=== PATIENT | male | born 1940 | race Hispanic/Latino ===

== ENCOUNTER → 2020-02-18 | Outpatient (CLI) | payer OTHER | END | disposition home or self-care (01) | LOC: OIH 14:26 | PROVIDERS: ATTEND Internal Medicine | DX: M17.0 Bilateral primary osteoarthritis of knee (principal) ==

== ENCOUNTER → 2020-02-25 | Outpatient (CLI) | payer OTHER | END | disposition home or self-care (01) | LOC: OIH 15:44 | PROVIDERS: ATTEND Internal Medicine | DX: R06.02 Shortness of breath (principal); I70.0 Atherosclerosis of aorta | CPT/HCPCS: 71046 ==

== ENCOUNTER 2020-02-27 13:57 | Emergency (ER) | payer OTHER ==
[2020-02-27 14:47] LABS: BASOPHILS % (AUTO) 0.1 % (0.0-5.0); HEMATOCRIT 43.3 % (42-54); MEAN CORPUSCULAR HEMOGLOBIN 29.2 pg (27.0-33.0); MEAN CORPUSCULAR HGB CONC 34.4 g/dL (32.0-36.0); MEAN CORPUSCULAR VOLUME 84.9 fL (79-99); MONOCYTES % (AUTO) 4.6 % (3.0-13.0); NEUTROPHILS % (AUTO) 90.4 % (40.0-77.0); PLATELET COUNT (AUTO) 295 K/uL (130-400); RED CELL DISTRIBUTION WIDTH 12.7 % (11.0-15.5); WHITE BLOOD COUNT (AUTO) 16.5 K/uL (4.8-10.8)
[2020-02-27 15:06] LABS: INR 0.99 (0.85-1.15); PARTIAL THROMBOPLASTIN TIME 28.9 SEC (26.3-35.5); PROTHROMBIN TIME 10.7 SEC (9.6-11.6)
[2020-02-27 15:14] LABS: CARBON DIOXIDE 26 mmol/L (21-32); CHLORIDE 98 mmol/L (101-111); CREATININE 1.3 mg/dL (0.5-1.5); GLOMERULAR FILTR. RATE CALC 56 mL/min (>60); GLUCOSE,RANDOM 172 mg/dL (70-105); POTASSIUM 3.8 mmol/L (3.5-5.1); SODIUM SERUM 136 mmol/L (136-145); UREA NITROGEN, BLOOD 23 mg/dL (7-18)
[2020-02-27 15:28] LABS: ALANINE AMINOTRANSFERASE 65 U/L (12-78); ALBUMIN 2.8 g/dL (3.5-5.0); ASPARTATE AMINOTRANSFERASE 55 U/L (10-37); BILIRUBIN,TOTAL 0.6 mg/dL (0.2-1.0); CREATINE KINASE, TOTAL 225 U/L (21-232); MYOGLOBIN 217 ng/mL (10-92); TOTAL PROTEIN, SERUM 7.7 g/dL (6.0-8.3); TROPONIN I < 0.04 ng/mL (0.00-0.06)
[2020-02-27 16:26] LABS: ABG BASE EXCESS 3.1 mmol/L (-2.0-3.0); ABG HCO3 26.3 mmol/L (21.0-28.0); ABG OXYGEN SATURATION 92.5 % (95.0-99.0); ABG PCO2 36 mmHg (35-48)
[2020-02-27] MEDS ORDERED: ACETAMINOPHEN 325 MG TAB ONE (17:12)
== END 2020-02-27 17:25 | disposition home or self-care (01) ==
LOC: EDH 13:57
DX: J12.89 Other viral pneumonia (principal); I10 Essential (primary) hypertension; E78.00 Pure hypercholesterolemia, unspecified; Z20.828 Contact with and (suspected) exposure to other viral communicable diseases
CPT/HCPCS: 36415 ×2; 36600; 71045; 80053; 82550; 82803; 83605; 83874; 84145; 84484; 85025; 85610; 85730; 86900; 86901; 87040 ×2; 87426; 87804 ×2; 93005; 99285; U0003

== ENCOUNTER 2020-03-03 09:17 | Inpatient (IN) | payer OTHER ==
[~2020-03-03] VITALS: Ht 167.6 cm; Wt 82.4 kg
[2020-03-03 09:37] LABS: ABG BASE EXCESS -1.1 mmol/L (-2.0-3.0); ABG HCO3 21.5 mmol/L (21.0-28.0); ABG OXYGEN SATURATION 95.4 % (95.0-99.0); ABG PCO2 31 mmHg (35-48)
[2020-03-03 09:55] LABS: BASOPHILS % (AUTO) 0.2 % (0.0-5.0); EOSINOPHILS % (AUTO) 0.2 % (0.0-8.0); HEMATOCRIT 43.5 % (42-54); MEAN CORPUSCULAR HEMOGLOBIN 28.9 pg (27.0-33.0); MEAN CORPUSCULAR HGB CONC 33.8 g/dL (32.0-36.0); MEAN CORPUSCULAR VOLUME 85.6 fL (79-99); MONOCYTES % (AUTO) 4.4 % (3.0-13.0); PLATELET COUNT (AUTO) 361 K/uL (130-400); RED BLOOD CELL COUNT(AUTO) 5.08 MIL/uL (4.50-6.20); RED CELL DISTRIBUTION WIDTH 12.7 % (11.0-15.5)
[2020-03-03 10:02] LABS: CARBON DIOXIDE 22 mmol/L (21-32); CHLORIDE 101 mmol/L (101-111); CREATININE 1.4 mg/dL (0.5-1.5); GLOMERULAR FILTR. RATE CALC 52 mL/min (>60); GLUCOSE,RANDOM 202 mg/dL (70-105); POTASSIUM 4.3 mmol/L (3.5-5.1); SODIUM SERUM 137 mmol/L (136-145); UREA NITROGEN, BLOOD 34 mg/dL (7-18)
[2020-03-03 10:05] LABS: INR 1.12 (0.85-1.15); PARTIAL THROMBOPLASTIN TIME 23.6 SEC (26.3-35.5)
[2020-03-03 10:13] LABS: ALANINE AMINOTRANSFERASE 45 U/L (12-78); ALBUMIN 2.4 g/dL (3.5-5.0); ASPARTATE AMINOTRANSFERASE 34 U/L (10-37); BILIRUBIN,TOTAL 0.8 mg/dL (0.2-1.0); CREATINE KINASE, TOTAL 95 U/L (21-232); MYOGLOBIN 176 ng/mL (10-92); TOTAL PROTEIN, SERUM 7.1 g/dL (6.0-8.3); TROPONIN I < 0.04 ng/mL (0.00-0.06)
[2020-03-03] MEDS ORDERED: DEXAMETHASONE SOD PHOSPHATE 10MG/ML 1ML VIAL ONE (11:39)
[2020-03-03] MEDS ORDERED: CEFTRIAXONE SODIUM 1 GM ONE (11:40)
[2020-03-03] MEDS ORDERED: AZITHROMYCIN 500MG+NS 250ML 250 ML IV ONE (11:40)
[2020-03-04] MEDS ORDERED: LACTATED RINGERS 1000ML 1,000 ML IV SCH (01:45)
[2020-03-04] MEDS: CEFTRIAXONE SODIUM 1 GM IVP SCH ×2 (01:45→13:45)
[2020-03-04] MEDS ORDERED: ERGOCALCIFEROL (VITAMIN D2) 50,000 UNIT CAPSULE PO ONE (01:45)
[2020-03-04] MEDS: AZITHROMYCIN 500MG+NS 250ML 250 ML IV SCH (01:45)
[2020-03-04] MEDS ORDERED: HYDRALAZINE HCL 20 MG/ML VIAL ONE ×2 (01:54→10:21)
[2020-03-04] MEDS ORDERED: HYDRALAZINE HCL 20 MG/ML VIAL IV PRN (02:00)
[2020-03-04] MEDS ORDERED: PHARMACY COMMUNICATION MISC SCH (02:15)
[2020-03-04] MEDS: PHARMACY COMMUNICATION***REMDESIVIR ORDER MISC SCH (02:15)
[2020-03-04 04:15] LABS: HEMOGLOBIN A1C 7.5 % (4.0-6.0)
[2020-03-04] MEDS ORDERED: LABETALOL 20 MG/4 ML DISP.SYRIN IV ONE (05:56)
[2020-03-04] MEDS: ASCORBIC ACID 500 MG TAB PO SCH (09:00)
[2020-03-04] MEDS ORDERED: ENOXAPARIN SODIUM 80 MG/0.8 ML SQ SCH (09:00)
[2020-03-04] MEDS: DEXAMETHASONE SOD PHOSPHATE 4 MG/ML 1ML VIAL IVP SCH (09:00)
[2020-03-04] MEDS: ACETYLCYSTEINE 600 MG CAPSULE PO SCH ×2 (09:00→21:00)
[2020-03-04] MEDS: ZINC SULFATE 220 CAPSULE PO SCH (09:00)
[2020-03-04] MEDS ORDERED: DEXAMETHASONE SOD PHOSPHATE 4 MG/ML 1ML VIAL ONE (10:18)
[2020-03-04] MEDS ORDERED: ENOXAPARIN SODIUM 80 MG/0.8 ML SQ ONE (10:18)
[2020-03-04] MEDS ORDERED: ASCORBIC ACID 500 MG TAB ONE (10:18)
[2020-03-04] MEDS ORDERED: ACETYLCYSTEINE 600 MG CAPSULE ONE (10:18)
[2020-03-04] MEDS ORDERED: ZINC SULFATE 220 CAPSULE ONE (10:19)
[2020-03-04] MEDS ORDERED: SODIUM CHLORIDE 0.9% 50 ML IV ONE (10:21)
[2020-03-04] MEDS ORDERED: AZITHROMYCIN 500MG+NS 250ML 250 ML IV ONE (10:21)
[2020-03-04] MEDS ORDERED: CEFTRIAXONE SODIUM 1 GM ONE (10:21)
[2020-03-04] MEDS ORDERED: ALBUTEROL INHALER 90MCG/INH IH ONE (10:55)
[2020-03-04] MEDS: FUROSEMIDE 10 MG/ML 2ML VIAL IV SCH ×2 (15:00→23:21)
[2020-03-04 15:40] LABS: MAGNESIUM 2.4 mg/dL (1.80-2.40); POTASSIUM 4.4 mmol/L (3.5-5.1)
[2020-03-04] MEDS ORDERED: FUROSEMIDE 10 MG/ML 2ML VIAL ONE (15:43)
[2020-03-04 18:08] LABS: APPEARANCE,URINE Clear (CLEAR); BILIRUBIN,URINE Negative (NEGATIVE); COLOR,URINE Yellow (YELLOW); GLUCOSE, URINE (UA) Negative (NEGATIVE); KETONES,URINE Negative (NEGATIVE); LEUKOCYTE ESTERASE ,URINE Negative (NEGATIVE); NITRATE,URINE Negative (NEGATIVE); OCCULT BLOOD,URINE Negative (NEGATIVE); PROTEIN,URINE Negative (NEGATIVE); UROBILINOGEN,URINE 0.2 mg/dL (0.2-1.0)
[2020-03-04 20:15] VITALS: BP 188/97
[2020-03-04] MEDS ORDERED: ALBUTEROL INHALER 90MCG/INH IH PRN (20:15)
--- NOTE | 2020-03-04 20:15 | NUR ---
Received pt. from ER in stable condition. C/o feeling cold. Pt. has SOB with exertion Sats 99 on 100% NRBM. External cath with 200 ml yellow clear urine Minor skin scratch in Left buttock, no other skin wounds.
[2020-03-04 21:00] VITALS: BP 157/84
[2020-03-04] MEDS: ENOXAPARIN SODIUM 80 MG/0.8 ML SQ SCH (21:00)
[2020-03-04 22:00] VITALS: BP 163/85
[2020-03-04] MEDS: DIPHENHYDRAMINE HCL 25 MG CAPSULE PO SCH (22:15)
[2020-03-04] MEDS ORDERED: DIPHENHYDRAMINE HCL 25 MG CAPSULE ONE (22:16)
[2020-03-04] MEDS ORDERED: ACETAMINOPHEN 325 MG TAB ONE (22:17)
[2020-03-04] MEDS: ACETAMINOPHEN 325 MG TAB PO PRN ×2 (22:21→23:38)
[2020-03-04 23:00] VITALS: BP 167/89
[2020-03-04] MEDS: LABETALOL 20 MG/4 ML DISP.SYRIN IV PRN (23:23)
[2020-03-05] VITALS (12 sets, daily range): BP systolic 133–180; BP diastolic 70–108
[2020-03-05] MEDS: AZITHROMYCIN 500MG+NS 250ML 250 ML IV SCH (01:16)
[2020-03-05] MEDS: CEFTRIAXONE SODIUM 1 GM IVP SCH ×2 (01:19→13:55)
[2020-03-05] MEDS: PHARMACY COMMUNICATION***REMDESIVIR ORDER MISC SCH ×2 (02:15→19:37)
[2020-03-05] MEDS ORDERED: NON-FORMULARY MEDICATION 1 EACH MISC SCH (02:15)
[2020-03-05] MEDS ORDERED: DICL75TA5 PO (03:11)
[2020-03-05] MEDS ORDERED: LISI40TA4 PO (03:11)
[2020-03-05] MEDS ORDERED: AMLO-257 PO (03:11)
[2020-03-05] MEDS ORDERED: ATOR40TA71 PO (03:11)
[2020-03-05 03:57] LABS: BASOPHILS % (AUTO) 0.1 % (0.0-5.0); EOSINOPHILS % (AUTO) 0.5 % (0.0-8.0); HEMATOCRIT 40.9 % (42-54); LYMPHOCYTES % (AUTO) 4.8 % (21.0-51.0); MEAN CORPUSCULAR HEMOGLOBIN 29.1 pg (27.0-33.0); MEAN CORPUSCULAR HGB CONC 33.7 g/dL (32.0-36.0); MEAN CORPUSCULAR VOLUME 86.1 fL (79-99); MONOCYTES % (AUTO) 3.4 % (3.0-13.0); NEUTROPHILS % (AUTO) 90.2 % (40.0-77.0); PLATELET COUNT (AUTO) 379 K/uL (130-400); RED BLOOD CELL COUNT(AUTO) 4.75 MIL/uL (4.50-6.20); RED CELL DISTRIBUTION WIDTH 12.9 % (11.0-15.5); WHITE BLOOD COUNT (AUTO) 10.6 K/uL (4.8-10.8)
[2020-03-05 04:13] LABS: ALBUMIN 2.1 g/dL (3.5-5.0); BILIRUBIN,TOTAL 0.5 mg/dL (0.2-1.0); CREATININE 1.1 mg/dL (0.5-1.5); CRP QUANTITATIVE 52.3 mg/L (0.00-9.0); TOTAL PROTEIN, SERUM 6.4 g/dL (6.0-8.3)
[2020-03-05 06:46] LABS: ABG BASE EXCESS 0.4 mmol/L (-2.0-3.0); ABG HCO3 24.3 mmol/L (21.0-28.0); ABG OXYGEN SATURATION 97.3 % (95.0-99.0); ABG PCO2 37 mmHg (35-48)
[2020-03-05] MEDS: DEXAMETHASONE SOD PHOSPHATE 4 MG/ML 1ML VIAL IVP SCH ×4 (08:20→20:16)
[2020-03-05] MEDS: ZINC SULFATE 220 CAPSULE PO SCH (08:20)
[2020-03-05] MEDS: ASCORBIC ACID 500 MG TAB PO SCH (08:20)
[2020-03-05] MEDS: ACETYLCYSTEINE 600 MG CAPSULE PO SCH ×2 (08:20→20:16)
[2020-03-05] MEDS: FUROSEMIDE 10 MG/ML 2ML VIAL IV SCH ×2 (08:22→15:28)
[2020-03-05] MEDS: ENOXAPARIN SODIUM 80 MG/0.8 ML SQ SCH ×2 (08:24→20:17)
[2020-03-05] MEDS ORDERED: COMPOUND IV REFRIGERATED 1 EACH IVSOLN MISC PRN (14:00)
[2020-03-05] MEDS ORDERED: REMDESIVIR (EUA) 520 200 MG in SODIUM CHLORIDE 0.9% 250 ML IV ONE (14:00)
[2020-03-05] MEDS: LABETALOL 20 MG/4 ML DISP.SYRIN IV PRN (16:27)
--- NOTE | 2020-03-05 16:41 | NUR ---
DC PLAN VISITED WITH PATIENT. PATIENT LIVES WITH SPOUSE. INDEPENDENT ABLE TO PERFORM ADL'S. PATIENT HAS NO SERVICES OR DME'S. FEELS SAFE TO RETURN HOME. Addendum: 03/05/20 at 1644 by KASSIE GRACIA RN CM Amended: Links added.
[2020-03-05] MEDS: PHARMACY COMMUNICATION MISC SCH (19:37)
[2020-03-05] MEDS: ATORVASTATIN CALCIUM 40 MG TABLET PO SCH (20:16)
[2020-03-05] MEDS: DIPHENHYDRAMINE HCL 25 MG CAPSULE PO SCH (20:17)
[2020-03-06] VITALS (8 sets, daily range): BP systolic 111–181; BP diastolic 48–89
[2020-03-06] MEDS: CEFTRIAXONE SODIUM 1 GM IVP SCH ×2 (00:13→13:31)
[2020-03-06] MEDS: AZITHROMYCIN 500MG+NS 250ML 250 ML IV SCH (00:13)
[2020-03-06] MEDS: FUROSEMIDE 10 MG/ML 2ML VIAL IV SCH ×4 (00:13→20:06)
[2020-03-06 05:05] LABS: BASOPHILS % (AUTO) 0.1 % (0.0-5.0); HEMATOCRIT 44.7 % (42-54); LYMPHOCYTES % (AUTO) 5.9 % (21.0-51.0); MEAN CORPUSCULAR HEMOGLOBIN 28.9 pg (27.0-33.0); MEAN CORPUSCULAR HGB CONC 33.3 g/dL (32.0-36.0); MEAN CORPUSCULAR VOLUME 86.8 fL (79-99); MONOCYTES % (AUTO) 4.6 % (3.0-13.0); PLATELET COUNT (AUTO) 393 K/uL (130-400); RED BLOOD CELL COUNT(AUTO) 5.15 MIL/uL (4.50-6.20); WHITE BLOOD COUNT (AUTO) 6.9 K/uL (4.8-10.8)
[2020-03-06 05:22] LABS: ALBUMIN 2.3 g/dL (3.5-5.0); BILIRUBIN,TOTAL 0.4 mg/dL (0.2-1.0); CREATININE 1.3 mg/dL (0.5-1.5); CRP QUANTITATIVE 36.6 mg/L (0.00-9.0); POTASSIUM 4.2 mmol/L (3.5-5.1); TOTAL PROTEIN, SERUM 6.9 g/dL (6.0-8.3)
[2020-03-06] MEDS: LISINOPRIL 40 MG TABLET PO SCH (09:07)
[2020-03-06] MEDS: ZINC SULFATE 220 CAPSULE PO SCH (09:08)
[2020-03-06] MEDS: AMLODIPINE BESYLATE 5 MG TAB PO SCH (09:08)
[2020-03-06] MEDS: ACETYLCYSTEINE 600 MG CAPSULE PO SCH ×2 (09:08→20:06)
[2020-03-06] MEDS: ASCORBIC ACID 500 MG TAB PO SCH (09:08)
[2020-03-06] MEDS: ENOXAPARIN SODIUM 80 MG/0.8 ML SQ SCH ×2 (09:13→20:06)
[2020-03-06] MEDS: DEXAMETHASONE SOD PHOSPHATE 4 MG/ML 1ML VIAL IVP SCH ×2 (09:14→20:05)
--- NOTE | 2020-03-06 13:30 | NUR ---
[facility]IS[facility] FOR [facility] TODAY. SPKE TO VIVIANA AT [facility] RE PLAN OFR NEXT WEEK
[2020-03-06] MEDS: REMDESIVIR (EUA) 520 100 MG in SODIUM CHLORIDE 0.9% 250 ML IV SCH (14:22)
[2020-03-06] MEDS: DIPHENHYDRAMINE HCL 25 MG CAPSULE PO SCH (19:34)
[2020-03-06] MEDS: METOPROLOL TARTRATE 25 MG TAB PO SCH (20:06)
[2020-03-06] MEDS: ATORVASTATIN CALCIUM 40 MG TABLET PO SCH (20:06)
[2020-03-07] MEDS: PHARMACY COMMUNICATION***REMDESIVIR ORDER MISC SCH (02:15)
[2020-03-07] MEDS: PHARMACY COMMUNICATION MISC SCH (02:59)
[2020-03-07] MEDS: CEFTRIAXONE SODIUM 1 GM IVP SCH ×2 (03:38→14:20)
[2020-03-07] MEDS: AZITHROMYCIN 500MG+NS 250ML 250 ML IV SCH (03:38)
[2020-03-07 03:41] VITALS: BP 167/91
[2020-03-07 04:53] LABS: BASOPHILS % (AUTO) 0.1 % (0.0-5.0); MEAN CORPUSCULAR HEMOGLOBIN 29.1 pg (27.0-33.0); MEAN CORPUSCULAR HGB CONC 33.3 g/dL (32.0-36.0); MEAN CORPUSCULAR VOLUME 87.4 fL (79-99); MONOCYTES % (AUTO) 5.5 % (3.0-13.0); NEUTROPHILS % (AUTO) 87.5 % (40.0-77.0); PLATELET COUNT (AUTO) 428 K/uL (130-400); RED BLOOD CELL COUNT(AUTO) 5.15 MIL/uL (4.50-6.20); RED CELL DISTRIBUTION WIDTH 12.8 % (11.0-15.5)
[2020-03-07 05:08] LABS: ALBUMIN 2.4 g/dL (3.5-5.0); BILIRUBIN,TOTAL 0.5 mg/dL (0.2-1.0); CREATININE 1.2 mg/dL (0.5-1.5); CRP QUANTITATIVE 22.7 mg/L (0.00-9.0); POTASSIUM 4.3 mmol/L (3.5-5.1); TOTAL PROTEIN, SERUM 6.9 g/dL (6.0-8.3)
[2020-03-07 07:33] LABS: ABG BASE EXCESS -1.5 mmol/L (-2.0-3.0); ABG HCO3 22.2 mmol/L (21.0-28.0); ABG OXYGEN SATURATION 94.5 % (95.0-99.0); ABG PCO2 35 mmHg (35-48)
[2020-03-07 08:00] VITALS: BP 136/78
[2020-03-07] MEDS: ACETYLCYSTEINE 600 MG CAPSULE PO SCH ×2 (08:43→20:58)
[2020-03-07] MEDS: DRONABINOL 2.5 MG CAP PO SCH ×2 (08:43→16:55)
[2020-03-07] MEDS: ZINC SULFATE 220 CAPSULE PO SCH (08:43)
[2020-03-07] MEDS: AMLODIPINE BESYLATE 5 MG TAB PO SCH (08:43)
[2020-03-07] MEDS: ASCORBIC ACID 500 MG TAB PO SCH (08:43)
[2020-03-07] MEDS: METOPROLOL TARTRATE 25 MG TAB PO SCH ×2 (08:43→20:57)
[2020-03-07] MEDS: LISINOPRIL 40 MG TABLET PO SCH (08:44)
[2020-03-07] MEDS: ENOXAPARIN SODIUM 80 MG/0.8 ML SQ SCH ×2 (08:46→20:58)
[2020-03-07] MEDS: DEXAMETHASONE SOD PHOSPHATE 4 MG/ML 1ML VIAL IVP SCH ×2 (08:46→20:56)
[2020-03-07 12:45] VITALS: BP 145/91
[2020-03-07] MEDS: REMDESIVIR (EUA) 520 100 MG in SODIUM CHLORIDE 0.9% 250 ML IV SCH (14:20)
--- NOTE | 2020-03-07 15:15 | NUR ---
1430 PT OOB TO CHAIR, TOLERATED WELL, WILL MINIMAL ASSIST, SATURATION DROPPED 88-89% ON HF 15 LITERS. 1515 PT 93% ON HF 15 LITERS, SITING UP IN CHAIR, IVS LEAKING , DISCONTINUED, NEW IV INSERTED.
[2020-03-07 16:00] VITALS: BP_SYST 105; BP_SYST 133; BP_DIAS 72; BP_DIAS 80
[2020-03-07] MEDS: FUROSEMIDE 10 MG/ML 2ML VIAL IV SCH (16:57)
[2020-03-07] MEDS: MAGNESIUM HYDROXIDE 30 ML/UDCUP PO PRN ×2 (17:31→17:33)
[2020-03-07 20:00] VITALS: BP 137/74
[2020-03-07] MEDS: ATORVASTATIN CALCIUM 40 MG TABLET PO SCH (20:56)
[2020-03-07] MEDS: DIAZEPAM 5 MG TABLET PO PRN (20:57)
--- NOTE | 2020-03-07 22:00 | NUR ---
Pt. is awake alert oriented c/o anxiety and would like to sleep tonight. PM meds given along with anxiolytic sats 99% while sleeping in supine position. No c/o SOB or discomfort.
[2020-03-07] MEDS: DIPHENHYDRAMINE HCL 25 MG CAPSULE PO SCH (22:15)
[2020-03-07 22:24] LABS: CREATININE 1.3 mg/dL (0.5-1.5); POTASSIUM 4.3 mmol/L (3.5-5.1)
[2020-03-08] VITALS (7 sets, daily range): BP systolic 13–143; BP diastolic 71–88
[2020-03-08] MEDS: PHARMACY COMMUNICATION***REMDESIVIR ORDER MISC SCH (02:15)
[2020-03-08] MEDS: CEFTRIAXONE SODIUM 1 GM IVP SCH ×2 (02:31→13:24)
[2020-03-08] MEDS: AZITHROMYCIN 500MG+NS 250ML 250 ML IV SCH (02:32)
[2020-03-08] MEDS: DIAZEPAM 5 MG TABLET PO PRN ×2 (03:24→22:01)
[2020-03-08] MEDS: PHARMACY COMMUNICATION MISC SCH (06:35)
[2020-03-08] MEDS: ENOXAPARIN SODIUM 80 MG/0.8 ML SQ SCH ×2 (08:24→22:00)
[2020-03-08] MEDS: ASCORBIC ACID 500 MG TAB PO SCH (08:24)
[2020-03-08] MEDS: ZINC SULFATE 220 CAPSULE PO SCH (08:24)
[2020-03-08] MEDS: METOPROLOL TARTRATE 25 MG TAB PO SCH ×2 (08:24→22:00)
[2020-03-08] MEDS: AMLODIPINE BESYLATE 5 MG TAB PO SCH (08:24)
[2020-03-08] MEDS: LISINOPRIL 40 MG TABLET PO SCH (08:25)
[2020-03-08] MEDS: DEXAMETHASONE SOD PHOSPHATE 4 MG/ML 1ML VIAL IVP SCH ×2 (08:25→22:01)
[2020-03-08] MEDS: ACETYLCYSTEINE 600 MG CAPSULE PO SCH ×2 (08:25→22:00)
[2020-03-08] MEDS: DRONABINOL 2.5 MG CAP PO SCH ×2 (08:28→16:34)
[2020-03-08] MEDS ORDERED: ASPIRIN 81MG TAB.CHEW PO SCH (14:40)
[2020-03-08 15:11] LABS: ALBUMIN 2.2 g/dL (3.5-5.0); BILIRUBIN,DIRECT 0.1 mg/dL (0.0-0.3); BILIRUBIN,TOTAL 0.3 mg/dL (0.2-1.0); CREATININE 1.3 mg/dL (0.5-1.5); POTASSIUM 4.7 mmol/L (3.5-5.1); TOTAL PROTEIN, SERUM 5.9 g/dL (6.0-8.3)
[2020-03-08] MEDS: REMDESIVIR (EUA) 520 100 MG in SODIUM CHLORIDE 0.9% 250 ML IV SCH (16:34)
[2020-03-08] MEDS: ATORVASTATIN CALCIUM 40 MG TABLET PO SCH (22:00)
[2020-03-08] MEDS: DIPHENHYDRAMINE HCL 25 MG CAPSULE PO SCH (22:15)
[2020-03-08] MEDS: FAMOTIDINE 20MG TAB 20 MG TAB PO SCH (22:53)
[2020-03-09] MEDS: AZITHROMYCIN 500MG+NS 250ML 250 ML IV SCH (02:13)
[2020-03-09] MEDS: CEFTRIAXONE SODIUM 1 GM IVP SCH ×2 (02:14→13:53)
[2020-03-09] MEDS: PHARMACY COMMUNICATION***REMDESIVIR ORDER MISC SCH (03:11)
[2020-03-09 03:14] VITALS: BP 115/64
[2020-03-09 04:30] LABS: MEAN CORPUSCULAR HEMOGLOBIN 28.9 pg (27.0-33.0); MEAN CORPUSCULAR HGB CONC 33.3 g/dL (32.0-36.0); RED BLOOD CELL COUNT(AUTO) 4.6 MIL/uL (4.50-6.20); RED CELL DISTRIBUTION WIDTH 12.7 % (11.0-15.5); WHITE BLOOD COUNT (AUTO) 13.1 K/uL (4.8-10.8)
[2020-03-09 04:39] LABS: ABG BASE EXCESS -0.6 mmol/L (-2.0-3.0); ABG HCO3 23.4 mmol/L (21.0-28.0); ABG OXYGEN SATURATION 93.1 % (95.0-99.0); ABG PCO2 37 mmHg (35-48)
[2020-03-09 04:50] LABS: CREATININE 1.1 mg/dL (0.5-1.5); POTASSIUM 4.9 mmol/L (3.5-5.1)
--- NOTE | 2020-03-09 06:00 | NUR ---
Pt. slept most of the night occasionally requests urinal, otherwise incontinent in adult diaper. Weaned down 02 HFNC to 5 L as tolerated, ABG p02 64, Sats 94 % on monitor. Increased NC 02 to 7L sats 96%.
[2020-03-09] MEDS: PHARMACY COMMUNICATION MISC SCH (06:12)
[2020-03-09 08:29] VITALS: BP 142/72
[2020-03-09] MEDS: DEXAMETHASONE SOD PHOSPHATE 4 MG/ML 1ML VIAL IVP SCH ×2 (09:09→20:42)
[2020-03-09] MEDS: ASCORBIC ACID 500 MG TAB PO SCH (09:10)
[2020-03-09] MEDS: ACETYLCYSTEINE 600 MG CAPSULE PO SCH ×2 (09:10→20:41)
[2020-03-09] MEDS: METOPROLOL TARTRATE 25 MG TAB PO SCH ×2 (09:10→20:41)
[2020-03-09] MEDS: ASPIRIN 81MG TAB.CHEW PO SCH (09:10)
[2020-03-09] MEDS: DRONABINOL 2.5 MG CAP PO SCH ×2 (09:10→16:13)
[2020-03-09] MEDS: ZINC SULFATE 220 CAPSULE PO SCH (09:10)
[2020-03-09] MEDS: LISINOPRIL 40 MG TABLET PO SCH (09:11)
[2020-03-09] MEDS: AMLODIPINE BESYLATE 5 MG TAB PO SCH (09:11)
[2020-03-09] MEDS: ENOXAPARIN SODIUM 80 MG/0.8 ML SQ SCH ×2 (09:12→20:40)
[2020-03-09 12:00] VITALS: BP 134/68
[2020-03-09 14:59] LABS: ALBUMIN 2.1 g/dL (3.5-5.0); BILIRUBIN,DIRECT 0.1 mg/dL (0.0-0.3)
[2020-03-09 15:19] LABS: BILIRUBIN,TOTAL 0.3 mg/dL (0.2-1.0); TOTAL PROTEIN, SERUM 5.8 g/dL (6.0-8.3)
[2020-03-09 16:00] VITALS: BP 140/77
[2020-03-09] MEDS: REMDESIVIR (EUA) 520 100 MG in SODIUM CHLORIDE 0.9% 250 ML IV SCH (16:13)
[2020-03-09 19:37] VITALS: BP 147/66
[2020-03-09] MEDS: ACETAMINOPHEN 325 MG TAB PO PRN (20:41)
[2020-03-09] MEDS: DIAZEPAM 5 MG TABLET PO PRN (20:41)
[2020-03-09] MEDS: ATORVASTATIN CALCIUM 40 MG TABLET PO SCH (20:41)
[2020-03-09] MEDS: FAMOTIDINE 20MG TAB 20 MG TAB PO SCH (21:04)
[2020-03-09] MEDS: DIPHENHYDRAMINE HCL 25 MG CAPSULE PO SCH (22:15)
[2020-03-09 23:30] VITALS: BP 133/75
[2020-03-10] MEDS: AZITHROMYCIN 500MG+NS 250ML 250 ML IV SCH (01:04)
[2020-03-10] MEDS: CEFTRIAXONE SODIUM 1 GM IVP SCH ×2 (01:04→13:04)
[2020-03-10] MEDS: PHARMACY COMMUNICATION***REMDESIVIR ORDER MISC SCH (03:08)
[2020-03-10 03:53] VITALS: BP 152/69
[2020-03-10] MEDS: DIAZEPAM 5 MG TABLET PO PRN (03:56)
[2020-03-10 04:06] LABS: ABG BASE EXCESS -3.6 mmol/L (-2.0-3.0); ABG HCO3 20.6 mmol/L (21.0-28.0); ABG OXYGEN SATURATION 92.7 % (95.0-99.0); ABG PCO2 35 mmHg (35-48)
[2020-03-10 04:32] LABS: HEMATOCRIT 39.7 % (42-54); MEAN CORPUSCULAR HGB CONC 33.2 g/dL (32.0-36.0); MEAN CORPUSCULAR VOLUME 87.3 fL (79-99); RED BLOOD CELL COUNT(AUTO) 4.55 MIL/uL (4.50-6.20); RED CELL DISTRIBUTION WIDTH 12.5 % (11.0-15.5); WHITE BLOOD COUNT (AUTO) 13.3 K/uL (4.8-10.8)
[2020-03-10 04:45] LABS: CREATININE 1.1 mg/dL (0.5-1.5); POTASSIUM 4.5 mmol/L (3.5-5.1)
--- NOTE | 2020-03-10 06:00 | NUR ---
Pt. slept well all night. 02 sats 95-97 % Tolerating 02 HF NC 3L well. No c/o pain or discomfort. Anticipates going home soon.
[2020-03-10] MEDS: PHARMACY COMMUNICATION MISC SCH (06:43)
[2020-03-10 07:00] VITALS: BP 147/75
[2020-03-10] MEDS: ASPIRIN 81MG TAB.CHEW PO SCH (08:32)
[2020-03-10] MEDS: ZINC SULFATE 220 CAPSULE PO SCH (08:32)
[2020-03-10] MEDS: ENOXAPARIN SODIUM 80 MG/0.8 ML SQ SCH (08:32)
[2020-03-10] MEDS: ASCORBIC ACID 500 MG TAB PO SCH (08:32)
[2020-03-10] MEDS: METOPROLOL TARTRATE 25 MG TAB PO SCH (08:33)
[2020-03-10] MEDS: DEXAMETHASONE SOD PHOSPHATE 4 MG/ML 1ML VIAL IVP SCH (08:33)
[2020-03-10] MEDS: DRONABINOL 2.5 MG CAP PO SCH ×2 (08:33→15:38)
[2020-03-10] MEDS: ACETYLCYSTEINE 600 MG CAPSULE PO SCH (08:33)
[2020-03-10] MEDS: LISINOPRIL 40 MG TABLET PO SCH (08:34)
[2020-03-10] MEDS: AMLODIPINE BESYLATE 5 MG TAB PO SCH (08:35)
--- NOTE | 2020-03-10 09:31 | NUR ---
Assessment note: Patient resting well. Denies pain. No needs at this time. Call light within reach. Morning meds given and patient area cleaned up. Addendum: 03/10/20 at 0933 by LENI JOYA RN RN Amended: Links added.
[2020-03-10 11:00] VITALS: BP 126/67
[2020-03-10] MEDS ORDERED: FAMO-136 PO (11:43)
[2020-03-10] MEDS ORDERED: ASPI-1026 PO (11:43)
[2020-03-10] MEDS ORDERED: AZIT500T4 PO (11:43)
[2020-03-10] MEDS ORDERED: DEXA6TAB7 PO (11:43)
[2020-03-10] MEDS ORDERED: METO25TA6 PO (11:48)
--- NOTE | 2020-03-10 11:50 | NUR ---
RDSCREEN - COVID PNA, LOS X 7 Pt admitted with COVID PNA. Pt tolerating 75gm CCD order with no report of GI distress. Pt reports bad taste of foods. Able to maintain 50-100% PO intake. 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 Monitored labs: WBC 13.3, BUN 39, BG 225, Ca 7.5, Alb 2.1. Lipitor, Pepcid, Rocephin, Azithromycin, Valium, Zinc, Vitamin C, Marinol medications in place. Recommend Glucerna BID Recommend continue immune support regimen Recommend monitoring of elevated BG levels Addendum: 03/10/20 at [address] RD Amended: Links added.
[2020-03-10 15:00] VITALS: BP 125/65
--- NOTE | 2020-03-10 15:24 | NUR ---
MULTIPLE CALLS AND COMMUNICATIONS WITH FAMILY MEMBERS- DOES PATIENT REALLY HAVE OXYGEN? TO SON SAYS NO, GRAND DAUGHTER SAYS SHE DOES NOT KNOW, CALL BACK FROM [facility]OUSE [facility] WHO STATES YES PATIENT HAS TANKS AND CONFIRMS THAT PATIENT HAS CONCENTRATOR. PLAN IS FOR HOME TODAY, TEXT TO [facility], ADVISED CLEARED BY FAIZAN. PATIENT AWARE HE WILL BE GOING HOME TODAY Addendum: 03/10/20 at 1529 by UMBERTO CASTILLO RN CM Amended: Links added.
--- NOTE | 2020-03-10 18:03 | NUR ---
Discharge: Patient ready for discharge and order placed per Dr. La. Patient's daughter (Janey) notified and discharge teaching done with her over the phone as she will be able to relay it to the patient and . had oxygen at home and tank for the care. Patient signed the discharge papers and given discharge packet. IV removed and patient dressed and taken to car.
== END 2020-03-10 18:15 | disposition home or self-care (01) | DRG 871 ==
LOC: EDH 09:17 → EDHIP 11:20 → 2BH 03-04 20:36 → 2AH 03-05 16:42
PROVIDERS: ADMIT Internal Medicine; ATTEND Internal Medicine
PROC: XW13325 Transfusion of Convalescent Plasma (Nonautologous) into Peripheral Vein, Percutaneous Approach, New Technology Group 5 (ICD-10-PCS; 2020-03-04)
PROC: 5A0955A Assistance with Respiratory Ventilation, Greater than 96 Consecutive Hours, High Flow/Velocity Cannula (ICD-10-PCS; 2020-03-04)
PROC: XW033E5 Introduction of Remdesivir Anti-infective into Peripheral Vein, Percutaneous Approach, New Technology Group 5 (ICD-10-PCS; principal; 2020-03-05)
DX: A41.89 Other specified sepsis (principal); U07.1 COVID-19; J12.89 Other viral pneumonia; J96.01 Acute respiratory failure with hypoxia; J81.0 Acute pulmonary edema; J44.0 Chronic obstructive pulmonary disease with (acute) lower respiratory infection; I12.9 Hypertensive chronic kidney disease with stage 1 through stage 4 chronic kidney disease, or unspecified chronic kidney disease; N18.30 Chronic kidney disease, stage 3 unspecified; E11.22 Type 2 diabetes mellitus with diabetic chronic kidney disease; I25.10 Atherosclerotic heart disease of native coronary artery without angina pectoris; E11.65 Type 2 diabetes mellitus with hyperglycemia; F32.9 Major depressive disorder, single episode, unspecified; E78.00 Pure hypercholesterolemia, unspecified; I70.0 Atherosclerosis of aorta; Z79.82 Long term (current) use of aspirin; Z85.46 Personal history of malignant neoplasm of prostate
CPT/HCPCS: 36415; 36600; 71045; 71250; 80048; 80053; 80076; 81003; 82550; 82728; 82803; 82948; 83036; 83605; 83615; 83735; 83874; 83880; 84132; 84145; 84484; 85025; 85027; 85378; 85610; 85730; 86140; 86850; 86900; 86901; 86927; 87040; 87088; 87426; 87804; 93005; 94760; G0378; J0360; J0456; J0696; J1100; J1650; J1940; J7050; Q0163; Q0167; U0003